=== PATIENT | male | born 1995 | race Asian ===

== ENCOUNTER 2020-09-25 13:13 | Emergency (ER) | payer OTHER ==
[~2020-09-25] VITALS: Ht 167.6 cm; Wt 66.0 kg
[2020-09-25 13:22] VITALS: BP 156/100
[2020-09-25 13:59] LABS: BASOPHILS % (AUTO) 0 % (0-1); EOSINOPHILS % (AUTO) 1 % (1-7); LYMPHOCYTES % (AUTO) 14 % (22-44); MEAN CORPUSCULAR HEMOGLOBIN 29.4 pg (27.5-34.5); MEAN CORPUSCULAR HGB CONC 34.1 g/dL (33.2-36.2); MEAN PLATELET VOLUME 7.6 fL (7.4-10.4); MONOCYTES % (AUTO) 12 % (2-9); NEUTROPHILS % (AUTO) 74 % (42-75); PLATELET COUNT 308 x10^3/uL (130-400); RED BLOOD COUNT 5.68 x10^6/uL (4.38-5.82); RED CELL DISTRIBUTION WIDTH 13.2 % (9.4-14.8)
[2020-09-25 14:01] LABS: MD NO
[2020-09-25 14:05] LABS: ALBUMIN 4.3 g/dL (3.4-5.0); ANION GAP 5 mmol/L (5-15); CALCIUM 8.8 mg/dL (8.5-10.1); CHLORIDE 107 mmol/L (98-107)
[2020-09-25 14:09] LABS: ALANINE AMINOTRANSFERASE 55 U/L (12-78); ALKALINE PHOSPHATASE 75 U/L (45-117); BILIRUBIN,TOTAL 0.4 mg/dL (0.2-1.0); CREATININE 1.16 mg/dL (0.7-1.3); TOTAL PROTEIN 8.1 g/dL (6.4-8.2)
--- NOTE | 2020-09-25 14:22 | NUR ---
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
--- NOTE | 2020-09-25 14:25 | NUR ---
INITIAL PT CONTACT. PT PRESENTS TO ED C/O "I THINK I HAVE A FEVER, I DIDN'T TAKE MY TEMPERATURE, IT JUST FEELS LIKE I HAVE ONE". RECENT CONTACT WITH COVID + PERSON, 5-7 DAYS AGO. PT DENIES ANY OTHER COMPLAINTS. PT SITTING UPRIGHT ON GURNEY, CONTINUOUS PULSE OX IN PLACE. PT DENIES ANY NEEDS AT THIS TIME. CALL LIGHT AND PERSONAL BELONGINGS WITHIN REACH. WILL CONTINUE TO MONITOR.
--- NOTE | 2020-09-25 14:59 | NUR ---
Patient given discharge instructions and they have confirmed that they understand the instructions. Patient ambulatory with steady gait.
== END 2020-09-25 15:02 | disposition home or self-care (01) ==
LOC: ED 14:00
DX: U07.1 COVID-19 (principal); B34.9 Viral infection, unspecified; R00.0 Tachycardia, unspecified
CPT/HCPCS: 36415; 71045; 80053; 85025; 87635; 93005; 99285